=== PATIENT | female | born 2000 | race African-American/Black ===

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

== ENCOUNTER 2022-07-01 07:36 | Day surgery (SDC) | payer OTHER ==
[~2022-07-01 07:36] MED LIST changes: +CIPROFLOXACN500 MG PO; +HIBICLENS4 % EX; +IMPLANON TD; +SPIRONOLACT25 MG PO
[2022-07-01] MEDS ORDERED: BACTRIM DS1 TAB PO (10:28)
[2022-07-01] MEDS ORDERED: PERCOCET 5/321 COMBO PO (10:29)
[2022-07-01 11:57] VITALS: BP 121/83
== END 2022-07-01 12:12 | disposition home or self-care (01) ==
LOC: ORM 07:36
PROVIDERS: ATTEND Surgery
DX: L73.2 Hidradenitis suppurativa (principal)
CPT/HCPCS: J0131; J0690

== ENCOUNTER 2022-11-01 11:18 | Emergency (ER) | payer OTHER ==
[~2022-11-01] VITALS: Ht 165.1 cm; Wt 98.4 kg
[~2022-11-01 11:18] MED LIST changes: +PERCOCET 5/321 COMBO PO
[2022-11-01 11:52] LABS: URINE BILIRUBIN - DIPSTICK NEGATIVE (NEGATIVE); URINE BLOOD DIPSTICK NEGATIVE (NEGATIVE); URINE COLOR YELLOW; URINE GLUCOSE - DIPSTICK NEGATIVE (NEGATIVE); URINE KETONE NEGATIVE (NEGATIVE); URINE LEUK ESTERASE NEGATIVE (NEGATIVE); URINE PROTEIN - DIPSTICK NEGATIVE (NEG-TRACE); URINE SPECIFIC GRAVITY 1.025
[2022-11-01 11:52] LABS: BASO% 0.4 % (0-3); HEMOGLOBIN 12.3 g/dl (12.0-16.0); IMMATURE GRANULOCYTES 0.1 % (0.0-5.0); LYMPH% 23.9 % (15-41); MEAN CELL VOLUME 82.7 fL CALC (80.0-100.0); MEAN CORPUSCULAR HGB 24.8 pG CALC (26.0-32.0); MONO% 5.2 % (2-13); NEUT# 5.36 thou/uL (2.00-7.15); NEUT% 68.4 % (42-76); RED BLOOD COUNT 4.96 mill/uL (4.20-5.60)
[2022-11-01 12:05] LABS: URINE NITRITE - DIPSTICK NEGATIVE (Negative)
[2022-11-01 12:21] LABS: ALBUMIN 4.7 g/dL (3.2-5.0); ALKALINE PHOSPHATASE 87 u/l (38-126); ANION GAP 16 (6-22 (CALC)); BUN 9 mg/dL (7-17); BUN/CREATININE RATIO 10 (12-20 (CALC)); CARBON DIOXIDE 24 mmol/l (22-30); CHLORIDE 106 mmol/l (95-108); CREATININE 0.9 mg/dL (0.5-1.0); GFR FOR AFR.AMER. > 60 ML/MIN (>=60 (CALC)); GFR OTHER RACES > 60 ML/MIN (>=60 (CALC)); LIPASE 79 u/l (23-300); SGOT/AST 26 u/l (14-36); SODIUM 143 mmol/l (137-146)
[2022-11-01 12:22] LABS: BILIRUBIN, TOTAL 0.2 mg/dL (0.02-1.3)
[2022-11-01 13:00] VITALS: BP 104/64
[2022-11-01 15:01] VITALS: BP 143/88
[2022-11-01] MEDS ORDERED: OMEPRAZOLE DR40 MG PO (15:08)
[2022-11-01] MEDS ORDERED: MIRALAX17 GM PO (15:08)
[2022-11-01 15:27] VITALS: BP 143/88
== END 2022-11-01 15:43 | disposition home or self-care (01) ==
LOC: ED 11:18
PROVIDERS: Family Medicine
DX: R10.13 Epigastric pain (principal)

== ENCOUNTER 2024-07-08 11:42 | Emergency (ER) | payer SELFPAY ==
[~2024-07-08] VITALS: Ht 165.1 cm; Wt 86.1 kg
[~2024-07-08 11:42] MED LIST changes: +MIRALAX17 GM PO; +OMEPRAZOLE DR40 MG PO
[2024-07-08] MEDS ORDERED: MUPIROCIN2 % EX (13:32)
[2024-07-08] MEDS ORDERED: BACTRIM DS1 TAB PO (13:32)
[2024-07-08 13:48] VITALS: BP 139/96
== END 2024-07-08 13:50 | disposition home or self-care (01) | DRG 603 ==
LOC: ED 11:42
DX: L03.221 Cellulitis of neck (principal); H91.90 Unspecified hearing loss, unspecified ear; Z20.822 Contact with and (suspected) exposure to COVID-19